=== PATIENT | male | born 1955 | race Caucasian/White ===

== ENCOUNTER 2017-04-10 22:45 | Emergency (ER) | payer OTHER ==
[~2017-04-10] VITALS: Ht 193 cm; Wt 129.0 kg
[~2017-04-10 22:45] MED LIST: ALTACE1.25 MG; ALTACE1.25 MG PO; ALTACE10 MG PO; ASPIRIN81 M1 PO; ASPIRIN81 M2 PO; ATORVASTATIN CA40 MG PO; HUMALOG100 UNIT/1 SC; LANTUS 3 M100 UNITS1 SC; LEVEMIR FL100 UNIT/1 SC; LEXAPRO20 MG PO; NOVOLOG PE100 UNITS/ SC; PERCOCET 5/31 TABLET PO; ROCEPHIN2 GM/50 ML IV
[2017-04-10 23:13] LABS: POINT-OF-CARE METER ID UU13113778
[2017-04-10 23:37] LABS: HEMATOCRIT 43.4 % (38.0-50.0); MCH 30.4 PG (29.0-34.0); MCHC 33.6 G/DL (30.0-36.0); MCV 90.2 FL (86-99); MEAN PLAT.VOLUME 11.3 uM^3 (9.0-12.4); PLATELET COUNT 229 K/uL (156-360); RBC DIS.WIDTH-SD 43.1 % (39-53); RED BLOOD COUNT 4.81 M/uL (4.00-5.50); WHITE BLOOD COUNT 8.4 K/uL (4.1-10.2)
[2017-04-10 23:56] LABS: CHLORIDE 101 mEq/L (99-109); POTASSIUM 4.4 mEq/L (3.7-5.4); SODIUM 135 mEq/L (136-147)
[2017-04-10 23:58] VITALS: BP 135/90
[2017-04-10 23:58] LABS: GLUCOSE 344 mg/dL (70-99)
[2017-04-10 23:59] LABS: ANION GAP 9 MEQ/L (2-14)
[2017-04-11 00:02] LABS: GFR ESTIMATE (CALCULATED) > 59 mL/min/; UREA NITROGEN (BUN) 14 mg/dL (9-23)
== END 2017-04-11 00:51 | disposition home or self-care (01) ==
LOC: EME 22:45
PROVIDERS: Nurse Practitioner Family
DX: E11.65 Type 2 diabetes mellitus with hyperglycemia (principal); Z79.4 Long term (current) use of insulin; E78.5 Hyperlipidemia, unspecified; I10 Essential (primary) hypertension; Z87.442 Personal history of urinary calculi
CPT/HCPCS: 80048; 82948; 85027; 99281; 99284

== ENCOUNTER 2017-09-09 01:00 | Observation (INO) | payer OTHER ==
[~2017-09-09] VITALS: Ht 193 cm; Wt 130.9 kg
[2017-09-09 01:47] LABS: HEMATOCRIT 43.9 % (38.0-50.0); MCH 31.4 PG (29.0-34.0); MCHC 34.2 G/DL (30.0-36.0); MCV 91.8 FL (86-99); PLATELET COUNT 249 K/uL (156-360); RBC DIS.WIDTH-SD 43.8 % (39-53); RED BLOOD COUNT 4.78 M/uL (4.00-5.50); WHITE BLOOD COUNT 8.6 K/uL (4.1-10.2)
[2017-09-09 01:57] LABS: CHLORIDE 104 mEq/L (99-109); POTASSIUM 4.3 mEq/L (3.7-5.4); SODIUM 134 mEq/L (136-147)
[2017-09-09 01:59] LABS: GLUCOSE 219 mg/dL (70-99)
[2017-09-09 02:03] LABS: CREATININE 1.2 mg/dL (0.6-1.3); GFR ESTIMATE (CALCULATED) > 59 mL/min/ (58.99-99999); UREA NITROGEN (BUN) 24 mg/dL (9-23)
[2017-09-09 02:09] LABS: TROP-I INTERPRETATION NEGATIVE; TROPONIN-I < 0.01 ng/mL (0.0-0.30)
[2017-09-09 03:14] LABS: ALBUMIN 4.1 g/dL (3.2-4.8)
[2017-09-09 03:16] LABS: TOTAL PROTEIN 7.2 g/dL (6.4-8.3)
[2017-09-09 03:18] LABS: TOTAL BILIRUBIN 0.6 mg/dL (0.0-1.0)
[2017-09-09 03:19] LABS: ALKALINE PHOSPHATASE 62 IU/L (3-129)
[2017-09-09 03:22] LABS: ALT (GPT) 19 IU/L (3-49); AST (GOT) 16 IU/L (2-34); DIRECT BILIRUBIN 0.2 mg/dL (0.0-0.3)
[2017-09-09 03:23] LABS: LIPASE 17 U/L (1.0-51.0)
[2017-09-09 07:00] VITALS: BP 145/67
== END 2017-09-09 12:00 | disposition left against medical advice (07) ==
LOC: EME 01:00 → EDOF 04:46 → CANRESERV 04:48 → ENRESERV 04:48 → EDOF 12:00
DX: R07.9 Chest pain, unspecified (principal); I10 Essential (primary) hypertension; E11.9 Type 2 diabetes mellitus without complications; E78.5 Hyperlipidemia, unspecified; Z98.1 Arthrodesis status; Z79.4 Long term (current) use of insulin; Z79.82 Long term (current) use of aspirin; Z87.442 Personal history of urinary calculi
CPT/HCPCS: 71046; 80048; 80076; 83690; 84484; 85027; 93005; G0378